=== PATIENT | male | born 1955 | race Caucasian/White ===

== ENCOUNTER 2016-12-15 11:32 | Observation (INO) | payer MEDICAID, OTHER ==
[~2016-12-15] VITALS: Ht 185.4 cm; Wt 88.5 kg
[~2016-12-15 11:32] MED LIST: ASP81EC PO; Atorvastatin Calcium PO; CAR3125T PO; FUR40T PO; Losartan Potassium PO; NITR0.4S29 SL; SPIR25TA88 PO
[2016-12-15 12:02] LABS: Basophils # (auto) 0.1 uL; Basophils % (auto) 1.1 % (0.0-2.0); CONDITION Y; Eosinophils # (auto) 0.3 uL; Eosinophils % (auto) 2.7 % (0.0-7.0); Hematocrit 42.3 % (41.0-53.0); Hemoglobin 14.3 g/dL (13.5-17.5); Lymphocytes # (auto) 2.2 uL; Lymphocytes % (auto) 20.8 % (10.0-50.0); Mean Corpuscular Hemoglobin 29.4 pg (28.0-32.0); Mean Corpuscular Hgb Conc. 33.9 g/dL (32.0-36.0); Mean Corpuscular Volume 86.8 fL (80.0-100.0); Mean Platelet Volume 6.5 fL (7.4-10.4); Monocytes # (auto) 1.2 uL; Monocytes % (auto) 10.8 % (0.0-12.0); Neutrophils # (auto) 6.9 uL; Neutrophils % (auto) 64.6 % (37.0-80.0); Platelet Count (auto) 504 10^3/uL (140-450); White Blood Cell 10.7 10^3/uL (4.4-10.8)
[2016-12-15] MEDS ORDERED: ASPirin 81 mg TAB PO ONE (12:15)
[2016-12-15 12:19] LABS: Albumin 3.6 g/dL (3.4-5.0); Anion Gap 8 (5-15); Aspartate Aminotransferase 19 U/L (15-37); BUN/Creatinine Ratio 16.3; Blood Urea Nitrogen 17 mg/dL (7-18); Calcium 8.5 mg/dL (8.5-10.1); Carbon Dioxide 24 mmol/L (21-32); Chloride 108 mmol/L (98-107); GFR African American 93 mL/min; GFR Non-African American 77 mL/min; Glucose 82 mg/dL (74-106); Potassium 3.8 mmol/L (3.5-5.1); Sodium 140 mmol/L (136-145)
[2016-12-15 12:24] LABS: Alkaline Phosphatase 80 U/L (45-117); Bilirubin, Total 0.9 mg/dL (0.2-1.0); Total Protein 7.7 g/dL (6.4-8.2)
[2016-12-15] MEDS ORDERED: cloNIDine HCL 0.1 MG TAB PO ONE (12:45)
[2016-12-15 12:54] LABS: INR 0.98 (0.9-1.15); Partial Thromboplastin Time 29.2 sec (22.64-33.71); Prothrombin Time 10.7 sec (9.37-12.3)
[2016-12-15 13:28] LABS: B-Type Natriuretic Peptide 34.35 pg/mL (0-100)
[2016-12-15 13:31] LABS: Temperature: 21.9 C (20.0-25.0)
[2016-12-15 15:33] VITALS: BP 149/109
== END 2016-12-15 16:29 | disposition home or self-care (01) | DRG 203 ==
LOC: ER 11:32 → OVERFLOW 12:24 → ER 16:29
PROVIDERS: ADMIT Family Medicine; ATTEND Family Medicine
DX: R07.2 Precordial pain (principal); I10 Essential (primary) hypertension; F41.9 Anxiety disorder, unspecified; F32.9 Major depressive disorder, single episode, unspecified; F17.210 Nicotine dependence, cigarettes, uncomplicated
CPT/HCPCS: 36415; 71010; 80053; 83735; 83880; 84443; 84484; 85025; 85379; 85610; 85730; 99285; G0378; 93005

== ENCOUNTER 2018-01-25 22:12 | Emergency (ER) | payer MEDICAID ==
[~2018-01-25] VITALS: Ht 185.4 cm; Wt 79.4 kg
[2018-01-26] MEDS ORDERED: KETOROLAC TROMETH 30 MG/ML 1ML VIAL IV ONE (01:00)
[2018-01-26] MEDS ORDERED: TETANUS-DIPTH-ACEL PERTUSSIS 0.5ML SYRG IM ONE (01:00)
[2018-01-26] MEDS ORDERED: cefTRIAXone 1GM/10ml IVPUSH 10 ML IV ONE (01:00)
[2018-01-26 01:30] VITALS: BP 120/84
== END 2018-01-26 01:52 | disposition short-term general hospital (02) ==
LOC: ER 22:12
DX: S92.252B Displaced fracture of navicular [scaphoid] of left foot, initial encounter for open fracture (principal); S92.212B Displaced fracture of cuboid bone of left foot, initial encounter for open fracture; S92.222B Displaced fracture of lateral cuneiform of left foot, initial encounter for open fracture; I10 Essential (primary) hypertension; E78.5 Hyperlipidemia, unspecified; F17.210 Nicotine dependence, cigarettes, uncomplicated; Z79.82 Long term (current) use of aspirin; Z79.899 Other long term (current) drug therapy; W34.09XA Accidental discharge from other specified firearms, initial encounter; Y93.89 Activity, other specified; Y92.89 Other specified places as the place of occurrence of the external cause; Y99.8 Other external cause status
CPT/HCPCS: 73590; 73610; 73620; 90471; 90715; 96374; 96375; 99285; J0696; J1885